=== PATIENT | male | born 1975 | race Caucasian/White ===

== ENCOUNTER 2019-08-21 20:11 | Emergency (ER) | payer BC ==
--- NOTE | 2019-08-21 20:15 | ERPHSYRPT ---
- History of Present Illness Time Seen by Provider: 08/21/19 20:15 Source: patient, family Exam Limitations: no limitations Physician History: 44 y/o obese white male with h/o htn on lisinopril and panic disorder presents with 3 day h/o cough, chest congestion and migraine headache. pt also has mild soa secondary to coughing. pt denies primary cardiac medical problems. pt can take hydrocodone without issues. pt does have h/o pneumonia and bronchitis in the past and uses a ventolin nebulizer as needed. pt denies fever. Timing/Duration: day(s) (3) Severity: moderate Associated Symptoms: nausea, cough, headaches, malaise (mild), No vomiting, No abdominal pain, No chills, No chest pain Allergies/Adverse Reactions: Iodinated Contrast Media Allergy (Verified 08/21/19 20:23) hydromorphone [From Dilaudid] Adverse Reaction (Verified 08/21/19 20:23) Home Medications: Atorvastatin Calcium 80 mg PO DAILY 08/21/19 [History] Lisinopril 20 mg [Zestril 20 MG] 20 mg PO DAILY 08/21/19 [History] Sertraline HCl [Zoloft] 25 mg PO DAILY 08/21/19 [History] Zolpidem Tartrate 10 mg PO DAILY 08/21/19 [History] - Review of Systems Constitutional: No Symptoms Eyes: No Symptoms Ears, Nose, & Throat: No Symptoms Respiratory: Cough, Dyspnea (mild) Cardiac: No Symptoms Abdominal/Gastrointestinal: No Symptoms Genitourinary Symptoms: No Symptoms Musculoskeletal: No Symptoms Skin: No Symptoms Neurological: Headache Psychological: No Symptoms Endocrine: No Symptoms Hematologic/Lymphatic: No Symptoms Immunological/Allergic: No Symptoms All Other Systems: Reviewed and Negative - Past Medical History Pertinent Past Medical History: Yes Neurological History: No Pertinent History ENT History: No Pertinent History Cardiac History: No Pertinent History Respiratory History: Bronchitis, Pneumonia Endocrine Medical History: No Pertinent History Musculoskeletal History: Degenerative Disk Disease GI Medical History: No Pertinent History History: No Pertinent History Psycho-Social History: Anxiety, Panic Disorder - Past Surgical History Neuro Surgical History: No Pertinent History Cardiac: No Pertinent History Respiratory: No Pertinent History Gastrointestinal: No Pertinent History Genitourinary: No Pertinent History Musculoskeletal: No Pertinent History Male Surgical History: No Pertinent History - Nursing Vital Signs Nursing Vital Signs: Initial Vital Signs Temperature 97.9 F 08/21/19 20:14 Pulse Rate 94 H 08/21/19 20:14 Respiratory Rate 19 08/21/19 20:14 Blood Pressure 137/79 08/21/19 20:14 O2 Sat by Pulse Oximetry 94 L 08/21/19 20:14 Pain Scale Pain Intensity 7 - Physical Exam General Appearance: mild distress, alert, anxiety Eye Exam: PERRL/EOMI, eyes nml inspection Ears, Nose, Throat Exam: normal ENT inspection, TMs normal, pharynx normal, moist mucous membranes Neck Exam: normal inspection, non-tender, supple, full range of motion Respiratory Exam: normal breath sounds, lungs clear, airway intact, No chest tenderness, No respiratory distress Cardiovascular Exam: regular rate/rhythm, normal heart sounds, normal peripheral pulses Gastrointestinal/Abdomen Exam: soft, normal bowel sounds, No tenderness Rectal Exam: not done Back Exam: normal inspection, normal range of motion, No CVA tenderness, No vertebral tenderness Extremity Exam: normal inspection, normal range of motion, pelvis stable Neurologic Exam: alert, oriented x 3, cooperative, pharmacist hospital II-XII nml as tested Skin Exam: normal color, warm, dry Lymphatic Exam: No adenopathy SpO2 Interpretation: borderline oxygenation O2 Delivery: Room Air - Course Nursing assessment & vital signs reviewed: Yes EKG Interpreted by Me: RATE (89), Sinus Rhythm, NORMAL AXIS, NORMAL INTERVALS, NORMAL QRS, Other (no comparison) Ordered Tests: Active Orders 24 hr Category Date Time Status CHEST 1 VIEW (PORTABLE) Stat Exams 08/21/19 20:39 Taken Respiratory Therapy Assessment DAILY RT 08/21/19 21:23 Completed Medication Summary Discontinued Medications Generic Name Dose Route Start Last Admin Trade Name Annika PRN Reason Stop Dose Admin Hydrocodone Bitart/Acetaminophen 15 ml 08/21/19 20:38 08/21/19 20:55 Hydrocodone-Acetamin 2.5-108/5 Ml Solution PO 08/21/19 20:39 15 ml STAT STA Administration Hydrocodone Bitart/Acetaminophen Confirm 08/21/19 20:50 Hydrocodone-Acetamin 2.5-108/5 Ml Solution Administered 08/21/19 20:51 Dose 15 ml .ROUTE .STK-MED ONE Albuterol Sulfate Confirm 08/21/19 21:20 Proventil 2.5 Mg/3 Ml Neb Administered 08/21/19 21:21 Dose 2.5 mg IH .STK-MED ONE Albuterol Sulfate 2.5 mg 08/21/19 21:22 08/21/19 21:23 Proventil 2.5 Mg/3 Ml Neb IH 08/21/19 21:23 2.5 mg STAT ONE Administration Ceftriaxone Sodium 1,000 mg 08/21/19 20:37 08/21/19 20:56 Rocephin 1000 Mg Inj IM 08/21/19 20:38 1,000 mg STAT ONE Administration Ceftriaxone Sodium Confirm 08/21/19 20:50 Rocephin 1000 Mg Inj Administered 08/21/19 20:51 Dose 1,000 mg .ROUTE .STK-MED ONE Methylprednisolone Sodium Succinate 125 mg 08/21/19 20:38 08/21/19 20:56 Solu-Medrol 125 Mg IM 08/21/19 20:39 125 mg STAT ONE Administration Methylprednisolone Sodium Succinate Confirm 08/21/19 20:50 Solu-Medrol 125 Mg Administered 08/21/19 20:51 Dose 125 mg .ROUTE .STK-MED ONE Morphine Sulfate 2 mg 08/21/19 21:20 08/21/19 21:27 Morphine Sulfate 2 Mg Inj IM 08/21/19 21:21 2 mg STAT ONE Administration Morphine Sulfate Confirm 08/21/19 21:24 Morphine Sulfate 2 Mg Inj Administered 08/21/19 21:25 Dose 2 mg .ROUTE .STK-MED ONE - Progress Progress: improved Progress Note: 08/21/19 22:24 pt states he is feeling much better and wants to go home. Counseled pt/family regarding: diagnosis, need for follow-up, rad results - Departure Departure Disposition: Home Clinical Impression: Bronchitis Condition: Stable Critical Care Time: No Referrals: DOCTOR,NO FAMILY [Primary Care Provider] - Additional Instructions: drink plenty of fluids. use nebulizer with ventolin every 4 hours while awake. return to ED if symptoms worsen. Prescriptions: Azithromycin 250 mg [Zithromax 250 MG TABLET] 250 mg PO ZPACK #6 tablet Hydrocodone Bit/Acetaminophen [Hydrocodone-Acetaminophen Soln] 10 ml PO Q6H # 120 ml Prednisone 10 mg [Deltasone 10 mg] 10 mg PO TID #12 tablet
[2019-08-21] MEDS ORDERED: Rocephin 1000 MG INJ IM ONE (20:37)
[2019-08-21] MEDS ORDERED: HYDROCODONE-ACETAMIN 2.5-108/5 ML SOLUTION PO STA ×2 (20:38→22:27)
[2019-08-21] MEDS ORDERED: solu-MEDROL 125 MG IM ONE (20:38)
[2019-08-21] MEDS ORDERED: solu-MEDROL 125 MG ONE (20:50)
[2019-08-21] MEDS ORDERED: Rocephin 1000 MG INJ ONE (20:50)
[2019-08-21] MEDS ORDERED: XYLOCAINE 1% HCL 20 ML MDV IJ ONE (20:50)
[2019-08-21] MEDS ORDERED: HYDROCODONE-ACETAMIN 2.5-108/5 ML SOLUTION ONE ×2 (20:50→22:31)
[2019-08-21] MEDS ORDERED: MORPHINE SULFATE 2 MG INJ IM ONE (21:20)
[2019-08-21] MEDS ORDERED: PROVENTIL 2.5 MG/3 ML NEB IH ONE ×2 (21:20→21:22)
[2019-08-21] MEDS ORDERED: MORPHINE SULFATE 2 MG INJ ONE (21:24)
[2019-08-21 22:45] VITALS: BP 138/84; PULSE 99; O2SAT 92
--- NOTE | 2019-08-22 08:47 | XRAY ---
Indication: Cough. Comparison: None Portable apical lordotic chest demonstrates normal heart, lungs, and bony thorax.
== END 2019-08-21 22:38 | disposition home or self-care (01) ==
LOC: ED 20:11
DX: J40 Bronchitis, not specified as acute or chronic (principal)
CPT/HCPCS: 71045; 94640; 96372; 99284; J0696; J2270; J2930; J7609; A9270-GY

== ENCOUNTER 2022-08-17 13:14 | Day surgery (SDC) | payer BC ==
[2022-08-17] MEDS ORDERED: LIDOCAINE HCL 2% 100 MG/5 ML IJ ONE (13:15)
[2022-08-17] MEDS ORDERED: Versed 2 MG/2 ML Injection ONE (14:31)
[2022-08-17] MEDS ORDERED: Reglan 10 MG/2 ML ONE (14:31)
[2022-08-17] MEDS ORDERED: Pepcid 20 MG VIAL IV ONE (14:31)
[2022-08-17] MEDS ORDERED: BENADRYL 50 MG/ML ONE (14:32)
[2022-08-17] MEDS ORDERED: DIPRIVAN 200 MG/20 ML IV ONE (15:54)
[2022-08-17] MEDS ORDERED: Lactated Ringers 1,000 ML IV ONE (16:35)
--- NOTE | 2022-08-17 16:56 | XRAY ---
Indication: Bilateral L4-S1 MBB. Intraoperative fluoroscopy provided for 18 seconds. Single digital spot images submitted for interpretation demonstrates posterior needle tips projecting over the expected left and right L4-S1 nerve roots. Correlate with intraoperative findings/report.
--- NOTE | 2022-08-17 20:25 | XRAY ---
18 seconds of fluoroscopy was used in surgery for a bilateral L4-S1 MBB.
== END 2022-08-17 16:30 | disposition home or self-care (01) ==
LOC: SDC-PAIN 13:14
PROVIDERS: ATTEND Psychiatry & Neurology Pain Medicine
DX: M47.816 Spondylosis without myelopathy or radiculopathy, lumbar region (principal); Z79.899 Other long term (current) drug therapy
CPT/HCPCS: 64493; 64494; 72020; 77002; J1200; J2250; J2704